=== PATIENT | male | born 1990 | race Caucasian/White ===

== ENCOUNTER 2020-09-23 22:10 | Emergency (ER) | payer BC ==
[2020-09-24 00:22] LABS: HEMOGLOBIN 15.3 gm/dl (14.0-17.5); RED BLOOD COUNT 4.36 M/UL (4.20-5.50); WHITE BLOOD COUNT 8.3 K/UL (4.5-11.0)
[2020-09-24 01:50] LABS: BUN/CREATININE RATIO 8 (0-10)
== END 2020-09-24 02:45 | disposition left against medical advice (07) ==
LOC: ER1 22:10
PROVIDERS: Internal Medicine
DX: K92.2 Gastrointestinal hemorrhage, unspecified (principal); F10.229 Alcohol dependence with intoxication, unspecified; Y90.8 Blood alcohol level of 240 mg/100 ml or more
CPT/HCPCS: 80053; 85025; 85610; 85730; 96374; 96375; 99285; C9113; G0480; J2405; Q9967

== ENCOUNTER 2020-12-22 21:54 | Emergency (ER) | payer BC ==
[2020-12-23 02:55] LABS: HEMOGLOBIN 14.5 gm/dl (14.0-17.5); RED BLOOD COUNT 4.15 M/UL (4.20-5.50); WHITE BLOOD COUNT 12.2 K/UL (4.5-11.0)
[2020-12-23 03:21] LABS: BUN/CREATININE RATIO 10 (0-10)
[2020-12-23] MEDS ORDERED: LODINE CAP 300300 MG PO (05:12)
[2020-12-23] MEDS ORDERED: ZOFRAN ODT 4 MG4 MG PO (05:12)
== END 2020-12-23 05:40 | disposition home or self-care (01) ==
LOC: ER1 21:54
PROVIDERS: Physician Assistant Medical
DX: S52.122A Displaced fracture of head of left radius, initial encounter for closed fracture (principal); W22.8XXA Striking against or struck by other objects, initial encounter; F17.210 Nicotine dependence, cigarettes, uncomplicated
CPT/HCPCS: 73030; 73060; 73080; 73090; 73130; 80053; 85025; 99283

== ENCOUNTER → 2020-12-27 | Outpatient (CLI) | payer BC ==
[~2020-12-27] MED LIST: LODINE CAP 300300 MG PO; ZOFRAN ODT 4 MG4 MG PO
== END ==
LOC: KOH-I 10:57
DX: S52.122A Displaced fracture of head of left radius, initial encounter for closed fracture (principal); S52.125A Nondisplaced fracture of head of left radius, initial encounter for closed fracture; X58.XXXA Exposure to other specified factors, initial encounter
CPT/HCPCS: 73200